=== PATIENT | female | born 1935 | race Caucasian/White ===

== ENCOUNTER → 2019-02-07 | Outpatient (CLI) | payer OTHER, MEDICARE ==
[~2019-02-07] VITALS: Ht 154.9 cm; Wt 46.3 kg
[~2019-02-07] MED LIST: ALIGN4 MG PO; BIOTIN5 MG PO; CALCIUM 500 +1 EAC4 PO; CENTRUM SILVER1 EAC4 PO; CITRACAL D + H1 EACH PO; ELIQUIS2.5 MG PO; ELLURA200 MG PO; ESTRADIOL42.5 GM VAG; FIBERCON625 M1 PO; IRON325 PO; LOPERAMIDE 2 MG2 M1 PO; MAG DELAY64 M1 PO; METOPROLOL TART25 MG PO; MYRBETRIQ50 MG PO; VITAMIN D3400 UNIT PO; ZANTAC 150MG T150 MG PO; ZYRTEC10 M5 PO
--- NOTE | ~2019-02-07 | HPC ---
[facility] [address] [place] [address] PAIN MANAGEMENT CONSULTATION Name: BROOKE BRICEÑOLL Room #: REG Billy Merrill.#: [id number] Admission: 02/07/19 ������������������ Attend Phys: Martín Feliz MD Discharge: ������������������ Date of : 31 Report #: [id number] THIS REPORT FOR: //name// CC: Dr. Mauro Feliz DATE OF SERVICE: 02/07/2019 CHIEF COMPLAINT: Low back pain radiating into both legs. This is an initial consult for the patient for this episode of pain, although I did see her over 5 years ago for similar problem. I do not have the old records. She is here today complaining of classic symptoms of neurogenic claudication and low back pain with radiculopathy radiating into both legs. When she is walking, she complains of an intermittent shooting, sharp, stabbing pain that can be as high as a 3/10. She still plays golf. She has noted that there is some increasing weakness, particularly when she is carrying things. She was having enough pain that a new MRI was ordered. I was able to review that test. The MRI shows that there is bilateral neural foraminal stenosis and marked central spinal stenosis at L4-L5 secondary to a combination of grade 1 anterolisthesis as well as marked facet arthropathy and marked ligamentum flavum thickening. She has moderate neural foraminal stenosis at L4-L5. There is in addition some central stenosis, which is mild right L3-L4. There are other degenerative changes with a levoconvex curvature of the lumbar spine. This would correlate well with her symptoms of neurogenic claudication and is likely the causative pain generator. MEDICATIONS: Cetirizine, multivitamins, magnesium, ranitidine, loperamide, FiberCon, ferrous sulfate, cranberry extract, calcium, biotin, cholecalciferol, Eliquis which has been discontinued for 5 days in anticipation of an epidural injection, estradiol, Myrbetriq, and metoprolol. ALLERGIES: SULFA. PAST MEDICAL HISTORY: Fairly unremarkable. She has had some surgery in the past including a tonsillectomy, vein stripping, hysterectomy and bladder wall surgery in 2013. She was found to be in atrial fibrillation on one occasion and for that reason, she was placed on an anticoagulant. She does not feel that she has been in atrial fib for years, but remains anticoagulated. SOCIAL HISTORY: She describes herself as a homemaker. She does not use alcohol or tobacco. [facility] [address] [place] [address] PAIN MANAGEMENT CONSULTATION Name: YARA BRICEÑO Room #: REG CLBilly Kristy#: [id number] Admission: 02/07/19 ������������������ Attend Phys: Martín Feliz MD Discharge: ������������������ Date of : 31 Report #: [id number] REVIEW OF SYSTEMS: Completed by the patient is positive only for some nocturia and some hearing loss. Otherwise, she has been in excellent health. PHYSICAL EXAMINATION: VITAL SIGNS: Blood pressure of 135/55, heart rate 60, and respirations 14. She is 5 feet 1 inch with a BMI of 19.3, her standard weight and this is a normal BMI for her. NECK: Supple. CHEST: Clear. CARDIAC: Rhythm is regular today without any audible atrial fibrillation. ABDOMEN: Soft and scaphoid. MUSCULOSKELETAL: She moves from sitting to standing position, ambulates without an antalgic feature to her gait. She has good range of motion of the upper extremities. Examination of the spine reveals also good flexion, extension, rotation, [id number] tilt. There is some rotational scoliosis noted. Tenderness across the lumbosacral segment. Straight leg raising is mildly positive, radiating into both legs. She has no loss of sensation in her lower extremities to light touch. Temperature discrimination is intact. No focal weakness is noted throughout the muscle testing of the lower extremities. LABORATORY AND DIAGNOSTIC DATA: MRI as noted above, describes fairly significant 0.4 cm anterolisthesis, spinal stenosis at L4-L5. 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 We had a lengthy discussion today about treatment including conservative measures including epidural injections and continuing to remain active. There are numerous surgical procedures that are minimally invasive including MILD (minimally invasive lumbar decompression) and VertiFlex procedure and other X-Stop like devices. These have been shown to be helpful for some patients, particularly those with thickened ligamentum flavum. She may end up being a candidate for one of them. She is not interested in surgery at all at this point in time and would like to see how she responds to an epidural injection. She notes that she had an excellent response to an epidural performed 5 years ago, all of those things I am certain have moved along. Procedure was explained with potential risks and benefits, she would like to go forward. DESCRIPTION OF PROCEDURE: She was taken to fluoroscopic suite. She was placed prone. Skin prepped with ChloraPrep and anesthetized over L4-L5. A 20-gauge Tuohy epidural needle advanced into the upper part of the epidural space using loss of resistance. There was no blood or CSF aspirated. 1 mL of Omnipaque was injected, good spread of dye observed into the epidural space followed by [address] [address] PAIN MANAGEMENT CONSULTATION Name: YARA BRICEÑO Room #: REG ALEJANDRO Wagner#: [id number] Admission: 02/07/19 ������������������ Attend Phys: Martín Feliz MD Discharge: ������������������ Date of : 31 Report #: [id number] of 0.5% lidocaine mixed with 80 mg triamcinolone. She tolerated the procedure very well. She was observed for about 45 minutes and discharged. There were no complications. Pain was reduced at discharge. We will see her back in 1 month or as needed. She is to restart her Eliquis tonight. ��������������������������������������������� ���������������������������������������� By: ��������������������������������������������� [id number] Martín Feliz MD /nt
[2019-02-07 10:00] VITALS: BP 137/55
--- NOTE | 2019-02-07 10:16 | NUR ---
Pain Clinic Assessment: 1. History of Osteoarthritis: History of Rheumatoid Arthritis: 2. Height: 5 ft. 1 in. 154.9 cm. Weight: 102.0 lb. oz. 46.267 kg. Patient's BMI: 19.3 3. Vital Signs: BP: 137/55 Pulse: 60 Resp: 14 Temp: 02 Sat: 100 ECG Mon: 4. Pain Intensity: 3 5. Fall Risk: Dizziness: N Needs help standing or walking: N Fallen in the last 3 months: N Fall risk comments: 6. Patient on Blood Thinner: XARELTO 7. History of Hypertension: N 8. Opioid Therapy greater than 6 weeks: N Opiate Contract Signed: 9. Risk Assessment Tool Provided: LOW 10. Functional Assessment Tool: 11. Recreational Drug Use: Never Drug Type: Tobacco Use: Never Smoker Tobacco Type: Amount or Packs/day: How Many Years: Alcohol Use: No Frequency: Quant:
== END | disposition home or self-care (01) ==
LOC: PAIN 06:52
DX: M48.062 Spinal stenosis, lumbar region with neurogenic claudication (principal); M54.16 Radiculopathy, lumbar region; I48.91 Unspecified atrial fibrillation; Z88.2 Allergy status to sulfonamides; Z79.01 Long term (current) use of anticoagulants; Z79.899 Other long term (current) drug therapy; Z98.890 Other specified postprocedural states

== ENCOUNTER → 2020-06-15 | Outpatient (CLI) | payer OTHER, MEDICARE ==
[~2020-06-15] VITALS: Ht 154.9 cm; Wt 48.1 kg
[~2020-06-15] MED LIST changes: +ADVIL200 M3 PO
[2020-06-15 09:24] VITALS: BP 154/66
--- NOTE | 2020-06-15 09:32 | NUR ---
Pain Clinic Assessment: 1. History of Osteoarthritis: HANDS History of Rheumatoid Arthritis: DENIES 2. Height: 5 ft. 1 in. 154.9 cm. Weight: 106.0 lb. oz. 48.081 kg. Patient's BMI: 20.0 3. Vital Signs: BP: 154/66 Pulse: 58 Resp: 14 Temp: 02 Sat: 99 ECG Mon: 4. Pain Intensity: 3 5. Fall Risk: Dizziness: N Needs help standing or walking: N Fallen in the last 3 months: N Fall risk comments: 6. Patient on Blood Thinner: MARIANNQUIS 7. History of Hypertension: N 8. Opioid Therapy greater than 6 weeks: N Opiate Contract Signed: 9. Risk Assessment Tool Provided: LOW 10. Functional Assessment Tool: 29 11. Recreational Drug Use: Never Drug Type: Tobacco Use: Never Smoker Tobacco Type: Amount or Packs/day: How Many Years: Alcohol Use: No Frequency: Quant:
== END | disposition home or self-care (01) ==
LOC: PAIN 06:49
PROVIDERS: ATTEND Anesthesiology Pain Medicine
DX: M48.061 Spinal stenosis, lumbar region without neurogenic claudication (principal); G89.29 Other chronic pain; Z98.890 Other specified postprocedural states; Z79.01 Long term (current) use of anticoagulants; Z88.2 Allergy status to sulfonamides

== ENCOUNTER → 2020-12-20 | Outpatient (CLI) | payer OTHER, MEDICARE ==
[~2020-12-20] VITALS: Ht 154.9 cm; Wt 48.2 kg
[~2020-12-20] MED LIST changes: +VALSARTAN80 MG PO
[2020-12-20 14:41] VITALS: BP 123/55
--- NOTE | 2020-12-20 14:48 | NUR ---
Pain Clinic Assessment: 1. History of Osteoarthritis: HANDS History of Rheumatoid Arthritis: DENIES 2. Height: 5 ft. 1 in. 154.9 cm. Weight: 106.2 lb. oz. 48.172 kg. Patient's BMI: 20.1 3. Vital Signs: BP: 123/55 Pulse: 61 Resp: 14 Temp: 02 Sat: 98 ECG Mon: 4. Pain Intensity: 3 5. Fall Risk: Dizziness: N Needs help standing or walking: N Fallen in the last 3 months: N Fall risk comments: 6. Patient on Blood Thinner: CHIN 7. History of Hypertension: N 8. Opioid Therapy greater than 6 weeks: N Opiate Contract Signed: 9. Risk Assessment Tool Provided: LOW-0 10. Functional Assessment Tool: 11. Recreational Drug Use: Never Drug Type: Tobacco Use: Never Smoker Tobacco Type: Amount or Packs/day: How Many Years: Alcohol Use: No Frequency: Quant:
== END | disposition home or self-care (01) ==
LOC: PAIN 09:10
PROVIDERS: ATTEND Anesthesiology Pain Medicine
DX: M54.16 Radiculopathy, lumbar region (principal); M48.062 Spinal stenosis, lumbar region with neurogenic claudication; Z98.890 Other specified postprocedural states; Z79.899 Other long term (current) drug therapy; Z79.01 Long term (current) use of anticoagulants; Z88.2 Allergy status to sulfonamides